=== PATIENT | male | born 1950 ===

== ENCOUNTER 2023-04-09 13:25 | Emergency (ER) | payer OTHER ==
[2023-04-09] MEDS ORDERED: DEXTROSE 50%-WATER 25 GM/50 ML SYRINGE IVP ONE (13:26)
[2023-04-09] MEDS ORDERED: ATROPINE SULFATE 0.1 MG/ML 10 ML SYRINGE IVP ONE (13:26)
[2023-04-09] MEDS ORDERED: NALOXONE HCL 1 MG/ML 2 ML SYRINGE IM ONE (13:26)
[2023-04-09] MEDS ORDERED: SODIUM BICARBONATE [ADULT] 8.4% 50 MEQ/50 ML SYRINGE IVP ONE (13:26)
[2023-04-09] MEDS ORDERED: EPINEPHrine 1:10,000 [1 MG/10 ML] SYRINGE IVP ONE (13:26)
== END 2023-04-09 18:59 ==
LOC: EMS 13:25
DX: I46.9 Cardiac arrest, cause unspecified (principal)
CPT/HCPCS: 99285; J0461; J0171; J3490; J2310